=== PATIENT | male | born 1980 | race Two or more races ===

== ENCOUNTER 2019-04-07 09:59 | Emergency (ER) | payer MEDICAID ==
[~2019-04-07] VITALS: Ht 170.2 cm; Wt 89.8 kg
[2019-04-07 10:14] VITALS: BP 144/70
[2019-04-07 10:56] LABS: Urine Bacteria FEW /hpf (None Seen); Urine Blood Negative /uL (Negative); Urine Mucus FEW (None Seen); Urine Specific Gravity 1.022 (1.001-1.035); Urine WBC 3 /hpf (0 - 3)
== END 2019-04-07 11:54 | disposition home or self-care (01) ==
LOC: ER 09:59
DX: R30.0 Dysuria (principal); R11.0 Nausea; I10 Essential (primary) hypertension
CPT/HCPCS: 81001